=== PATIENT | female | born 1995 | race Two or more races ===

== ENCOUNTER 2017-11-16 12:46 | Outpatient (CLI) | payer OTHER | END 2017-11-16 14:22 | disposition home or self-care (01) | LOC: RAD 12:46 | DX: M79.672 Pain in left foot (principal); M25.562 Pain in left knee ==

== ENCOUNTER 2018-05-03 16:01 | Outpatient (CLI) | payer OTHER | END 2018-05-03 16:03 | disposition home or self-care (01) | LOC: LAB 16:01 | DX: Z11.3 Encounter for screening for infections with a predominantly sexual mode of transmission (principal); Z01.84 Encounter for antibody response examination ==

== ENCOUNTER 2018-08-30 10:42 | Outpatient (CLI) | payer OTHER | END 2018-08-30 10:47 | disposition home or self-care (01) | LOC: LAB 10:42 | DX: Z11.3 Encounter for screening for infections with a predominantly sexual mode of transmission (principal); Z20.2 Contact with and (suspected) exposure to infections with a predominantly sexual mode of transmission; E06.9 Thyroiditis, unspecified; E78.89 Other lipoprotein metabolism disorders; E55.9 Vitamin D deficiency, unspecified; Z11.4 Encounter for screening for human immunodeficiency virus [HIV] ==

== ENCOUNTER → 2018-11-02 | Outpatient (CLI) | payer OTHER | END | disposition home or self-care (01) | LOC: LAB 11-01 14:43 | DX: B00.59 Other herpesviral disease of eye (principal); B00.89 Other herpesviral infection ==

== ENCOUNTER 2019-01-28 12:50 | Outpatient (CLI) | payer OTHER | END 2019-01-28 13:04 | disposition home or self-care (01) | LOC: SONOGRAMA 12:50 → MAMO-SONO 13:15 | DX: N83.201 Unspecified ovarian cyst, right side (principal) ==

== ENCOUNTER 2019-02-22 08:58 | Outpatient (CLI) | payer OTHER | END 2019-02-22 09:07 | disposition home or self-care (01) | LOC: LAB 08:58 | DX: E55.9 Vitamin D deficiency, unspecified (principal); E06.9 Thyroiditis, unspecified; R42 Dizziness and giddiness; A64 Unspecified sexually transmitted disease; Z11.4 Encounter for screening for human immunodeficiency virus [HIV] ==

== ENCOUNTER 2019-06-13 11:17 | Outpatient (CLI) | payer OTHER | END 2019-06-13 11:31 | disposition home or self-care (01) | LOC: RAD 11:17 | DX: M54.6 Pain in thoracic spine (principal); M25.562 Pain in left knee; M79.604 Pain in right leg; M25.571 Pain in right ankle and joints of right foot ==

== ENCOUNTER 2019-06-16 09:21 | Outpatient (CLI) | payer OTHER | END 2019-06-16 09:24 | disposition home or self-care (01) | LOC: MAMO-SONO 09:21 | DX: N63.10 Unspecified lump in the right breast, unspecified quadrant (principal); N63.20 Unspecified lump in the left breast, unspecified quadrant; Z12.31 Encounter for screening mammogram for malignant neoplasm of breast ==

== ENCOUNTER → 2020-04-14 10:24 | Outpatient (CLI) | payer OTHER | END | disposition home or self-care (01) | LOC: LAB 10:24 | PROVIDERS: ATTEND Internal Medicine | DX: N39.0 Urinary tract infection, site not specified (principal); E78.89 Other lipoprotein metabolism disorders; E06.5 Other chronic thyroiditis; E55.9 Vitamin D deficiency, unspecified; Z11.3 Encounter for screening for infections with a predominantly sexual mode of transmission ==

== ENCOUNTER → 2020-07-28 12:00 | Outpatient (CLI) | payer OTHER | END | disposition home or self-care (01) | LOC: LAB 12:00 | PROVIDERS: ATTEND Internal Medicine | DX: Z20.828 Contact with and (suspected) exposure to other viral communicable diseases (principal) ==

== ENCOUNTER 2022-10-15 12:27 | Outpatient (CLI) | payer OTHER | END 2022-10-15 23:00 | disposition home or self-care (01) | LOC: LAB 12:27 | PROVIDERS: ATTEND Internal Medicine | DX: R09.81 Nasal congestion (principal); A49.3 Mycoplasma infection, unspecified site; J11.1 Influenza due to unidentified influenza virus with other respiratory manifestations; J02.9 Acute pharyngitis, unspecified; R53.81 Other malaise; R06.2 Wheezing; R05.9 Cough, unspecified ==

== ENCOUNTER 2023-02-26 08:35 | Outpatient (CLI) | payer OTHER | END 2023-02-26 08:58 | disposition home or self-care (01) | LOC: MAMO-SONO 08:35 | PROVIDERS: ATTEND Internal Medicine | DX: Z12.31 Encounter for screening mammogram for malignant neoplasm of breast (principal); N63.0 Unspecified lump in unspecified breast; R10.2 Pelvic and perineal pain; N92.1 Excessive and frequent menstruation with irregular cycle ==

== ENCOUNTER 2024-07-30 14:24 | Outpatient (CLI) | payer OTHER ==
[2024-07-30 14:42] LABS: HEMATOCRIT 36.9 % (36.0-45.00); HEMOGLOBIN 12.5 g/dL (12.0-15.00); MEAN CELL VOLUME 83.7 fL (80.00-100.00); MEAN CORPUSCULAR HEMOGLOBIN 28.4 pg (27.00-32.0); MEAN CORPUSCULAR HGB CONC 33.9 g/dl (32.0-36.0); PLATELET COUNT 203 K/uL (150-450); RED CELL DISTRIBUTION WIDTH 13.1 % (11.5-14.5)
[2024-07-30 15:56] LABS: MANUAL PLATELET COUNT 246
== END 2024-07-30 14:30 | disposition home or self-care (01) ==
LOC: LAB 14:24
PROVIDERS: ATTEND Internal Medicine
DX: A90 Dengue fever [classical dengue] (principal)